=== PATIENT | male | born 1975 | race Two or more races ===

== ENCOUNTER 2020-01-21 12:33 | Emergency (ER) | payer MEDICAID ==
[~2020-01-21] VITALS: Ht 167.6 cm; Wt 70.9 kg
[2020-01-21 12:35] VITALS: BP 144/96
--- NOTE | 2020-01-21 13:07 | NUR ---
first contact with pt. pt states "white pedroza on skin" and in mouth. Pt states he think he came in contact with a "pet of some sort" pt's aox4. resps even and unlabored.
--- NOTE | 2020-01-21 13:27 | NUR ---
Patient given discharge instructions and they have confirmed that they understand the instructions. Patient ambulatory with steady gait.
== END 2020-01-21 13:28 | disposition home or self-care (01) ==
LOC: ED 13:22
DX: B80 Enterobiasis (principal); F31.9 Bipolar disorder, unspecified
CPT/HCPCS: 99283